=== PATIENT | female | born 1990 | race Caucasian/White ===

== ENCOUNTER 2017-08-23 10:10 | Emergency (ER) | payer MEDICAID ==
[~2017-08-23] VITALS: Wt 99.5 kg
--- NOTE | 2017-08-23 12:35 | ERD ---
ER Documentation Chief Complaint Date/Time DATE: 08/23/17 TIME: 12:33 Chief Complaint vb preg 8 wks HPI 27 year old female LMP 815 who is 8 weeks presents with mild vaginal bleeding since and crampy pelvic pain since 5am. Denies fevers, nausea, vomiting,dysuria ROS All systems reviewed and are negative except as per history of present illness. Medications Home Meds Active Scripts Cephalexin* (Keflex*) 500 Mg Capsule, 500 MG PO BID for 7 Days, CAP Prov:GRISELDA SINGH PA-C 08/23/17 Physical Exam Vitals Vital Signs Date Time Temp Pulse Resp B/P Pulse Ox O2 Delivery O2 Flow Rate FiO2 08/23/17 10:13 96.5 85 20 107/59 99 Physical Exam Const: WDWN Head: Atraumatic Eyes: Normal Conjunctiva ENT: Normal External Ears, Nose and Mouth. Neck: Full range of motion..~ No meningismus. Resp: Clear to auscultation bilaterally Cardio: Regular rate and rhythm, no murmurs Abd: Soft, non tender, non distended. Normal bowel sounds Skin: No petechiae or rashes Back: No midline or flank tenderness Ext: No cyanosis, or edema Neur: Awake and alert Psych: Normal Mood and Affect Result Diagram: 08/23/17 1240 Results 24 hrs Laboratory Tests Test 08/23/17 12:30 08/23/17 12:40 Urine Color YELLOW Urine Clarity CLEAR Urine pH 7.0 Urine Specific [place] 1.013 Urine Ketones NEGATIVEmg/dL Urine Nitrite NEGATIVEmg/dL Urine Bilirubin NEGATIVEmg/dL Urine Urobilinogen NEGATIVEmg/dL Urine Leukocyte Esterase NEGATIVELeu/ul Urine Microscopic RBC 1/HPF Urine Microscopic WBC 5/HPF Urine Squamous Epithelial Cells FEW/HPF Urine Bacteria FEW/HPF Urine Hemoglobin 2+mg/dL Urine Glucose NEGATIVEmg/dL Urine Total Protein NEGATIVEmg/dl White Blood Count 9.510^3/ul Red Blood Count 4.6510^6/ul Hemoglobin 13.9g/dl Hematocrit 40.8% Mean Corpuscular Volume 87.7fl Mean Corpuscular Hemoglobin 29.9pg Mean Corpuscular Hemoglobin Concent 34.1g/dl Red Cell Distribution Width 12.8% Platelet Count 40166^3/UL Mean Platelet Volume 10.5fl Neutrophils % 68.6% Lymphocytes % 24.4% Monocytes % 4.8% Eosinophils % 1.5% Basophils % 0.5% Nucleated Red Blood Cells % 0.0/100WBC Neutrophils # 6.510^3/ul Lymphocytes # 2.310^3/ul Monocytes # 0.510^3/ul Eosinophils # 0.110^3/ul Basophils # 0.110^3/ul Nucleated Red Blood Cells # 0.010^3/ul Beta HCG, Quantitative 831245.0mIU/ml Procedures/MDM 27 year old female LMP 15 who is 8 weeks presents with mild vaginal bleeding since and crampy pelvic pain since 5am, this is likely threatened . There was no evidence of UTI, complete , ectopic . Patient is dynamically stable to be discharged home to follow-up with [facility] and to repeat ultrasound and beta hCG in 2 days. No evidence of leukocytosis or anemia. Beta hCG [id number] OB pelvic US Single live intrauterine with an estimated gestational age of 7 weeks and 6 days, based on ultrasound measurements. KARMA based on ultrasound measurements is 04/05/2018. Departure Diagnosis: Primary Impression: Vaginal bleeding in patient at less than 20 weeks gestation Condition: Stable GRISELDA SINGH PA-C Aug 23, 2017 12:35
[2017-08-23 12:53] LABS: BASOPHIL # 0.1 10^3/ul (0.0-0.1); BASOPHILS % 0.5 % (0.0-2.0); EOSINOPHILS # 0.1 10^3/ul (0.0-0.5); EOSINOPHILS % 1.5 % (0.0-7.0); HEMATOCRIT 40.8 % (37.0-47.0); HEMOGLOBIN 13.9 g/dl (12.0-16.0); LYMPHOCYTES # 2.3 10^3/ul (0.8-2.9); LYMPHOCYTES % 24.4 % (15.0-51.0); MEAN CORPUSCULAR HEMOGLOBIN 29.9 pg (29.0-33.0); MEAN CORPUSCULAR HGB CONC 34.1 g/dl (32.0-37.0); MEAN CORPUSCULAR VOLUME 87.7 fl (82.0-101.0); MEAN PLATELET VOLUME 10.5 fl (7.4-10.4); MONOCYTE # 0.5 10^3/ul (0.3-0.9); MONOCYTES % 4.8 % (0.0-11.0); NEUTROPHIL # 6.5 10^3/ul (1.6-7.5); NEUTROPHILS % 68.6 % (39.0-77.0); PLATELET COUNT 310 10^3/UL (140-415); RED BLOOD COUNT 4.65 10^6/ul (4.20-5.40); RED CELL DISTRIBUTION WIDTH 12.8 % (11.5-14.5); WHITE BLOOD COUNT 9.5 10^3/ul (4.8-10.8)
[2017-08-23 13:03] LABS: ADD UMIC YES; UR ASCORBIC ACID NEGATIVE (NEGATIVE); UR BACTERIA FEW /HPF (NONE SEEN); UR BILIRUBIN (Dip) NEGATIVE (NEGATIVE); UR BLOOD (Dip) 2+ mg/dL (NEGATIVE); UR CLARITY CLEAR (CLEAR); UR COLOR YELLOW (YELLOW); UR GLUCOSE (Dip) NEGATIVE (NEGATIVE); UR KETONES (Dip) NEGATIVE (NEGATIVE); UR LEUKOCYTE ESTERASE (Dip) NEGATIVE Leu/ul (NEGATIVE); UR NITRITE (Dip) NEGATIVE (NEGATIVE); UR RBC 1 /HPF (0-5); UR SPECIFIC GRAVITY (Dip) 1.013 (1.003-1.030); UR SQUAMOUS EPITHELIAL CELL FEW /HPF (FEW); UR TOTAL PROTEIN (Dip) NEGATIVE (NEGATIVE); UR UROBILINOGEN (Dip) NEGATIVE (NEGATIVE)
--- NOTE | 2017-08-23 14:29 | RADRPT ---
PROCEDURE: US OB. CLINICAL INDICATION: Vaginal bleeding TECHNIQUE: Transabdominal views of the pelvis are available for review. COMPARISON: No prior studies are available for comparison. FINDINGS: There is a single intrauterine gestation with the crown-rump length measuring 1.4 cm and the gestati onal sac measuring 2.9 cm, corresponding to a gestational age of 7 weeks and 6 days. The heart rate is noted at 154 bpm. The ovaries are not visualized. There is no free fluid. RPTAT: AA IMPRESSION: Single live intrauterine with an estimated gestational age of 7 weeks and 6 days, based on ultrasound measurements. KARMA based on ultrasound measurements is 04/05/2018. .Jeremy Kennedy MD, MD Date Time Electronically viewed and signed by .Jeremy Kennedy MD, on 08/23/2017 14:29 .S/
[2017-08-23] MEDS ORDERED: CEPH-443 PO (14:39)
[2017-08-23 14:55] VITALS: BP 105/58; PULSE 67; RESP 16; TEMP 97.8
== END 2017-08-23 14:56 | disposition home or self-care (01) ==
LOC: FTE 10:10
DX: O20.9 Hemorrhage in early pregnancy, unspecified (principal); R10.2 Pelvic and perineal pain; Z3A.01 Less than 8 weeks gestation of pregnancy
CPT/HCPCS: 36415; 76801; 81001; 84702; 85025; 86900; 86901; Z7502

== ENCOUNTER 2018-01-12 17:53 | Emergency (ER) | END 2018-01-12 18:47 | disposition left against medical advice (07) ==

== ENCOUNTER 2018-01-12 18:39 | Outpatient (CLI) | END 2018-01-12 21:45 | disposition home or self-care (01) ==